=== PATIENT | female | born 1995 | race Caucasian/White ===

== ENCOUNTER 2018-08-16 21:11 | Emergency (ER) | payer OTHER, SELFPAY ==
[2018-08-16 21:14] VITALS: BP 162/70; PULSE 74; RESP 18; TEMP 37.1; O2SAT 98; BMI 43.8
--- NOTE | 2018-08-16 22:01 | ED.DEP ---
ED Disposition - Plan for ED Patient: Instructions: ED Head Injury Closed Referrals: [facility] [GROUP OF PHYSICIANS] -
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
[2018-08-16 22:23] VITALS: BP 156/60; PULSE 78; RESP 18; O2SAT 96
== END 2018-08-16 22:24 | disposition home or self-care (01) ==
LOC: ED 22:06
PROVIDERS: Emergency Provider Emergency Medicine; Family Provider Family Medicine; PCP Family Medicine
DX: S09.90XA Unspecified injury of head, initial encounter (principal); R40.2410 Glasgow coma scale score 13-15, unspecified time; W50.0XXA Accidental hit or strike by another person, initial encounter; Y93.9 Activity, unspecified; Y92.9 Unspecified place or not applicable; E03.9 Hypothyroidism, unspecified; Z79.899 Other long term (current) drug therapy
CPT/HCPCS: 99282